=== PATIENT | female | born 1940 | race Caucasian/White ===

== ENCOUNTER 2018-06-03 21:45 | Emergency (ER) | payer MEDICARE ==
[~2018-06-03] VITALS: Ht 165.1 cm; Wt 52.3 kg
[2018-06-03 21:47] VITALS: Ht 165.1 cm; Wt 52.3 kg
[2018-06-03] MEDS ORDERED: LOPERAMIDE HCL2 MG PO (21:48)
[2018-06-03] MEDS ORDERED: FEXOFENADINE HC60 MG PO (21:48)
[2018-06-03] MEDS ORDERED: NASACORT10.8 ML NASAL (21:48)
[2018-06-03 22:08] LABS: BASOPHILS 0.5 % (0-2); EOSINOPHILS 1.6 % (0-7); HEMOGLOBIN 13.4 g/dL (12-16); IMMATURE GRANULOCYTES 0.2 % (0-5); LYMPHOCYTES 17.7 % (15-50); MCH 30.5 pg (26.0-34.0); MCHC 34.4 g/dL (31.0-37.0); MCV 88.6 fL (80.0-100.0); MEAN PLATELET VOLUME 10.2 fL (7.4-10.4); MONOCYTES 9.2 % (2-11); NEUTROPHILS 70.8 % (40-80); PLATELET COUNT 207 10x3/uL (130-400); RDW 12.7 % (11.5-14.5); WBC 4.4 10x3/uL (4.8-10.8)
[2018-06-03 22:19] LABS: INR 0.9 (0.85-1.17); PROTIME 11.8 SECONDS (11.6-15.0)
[2018-06-03 22:23] LABS: ALBUMIN 3.6 g/dL (3.4-5.0); ALKALINE PHOSPHATASE 84 U/L (46-116); ALT (SGPT) 24 U/L (10-68); BILIRUBIN - TOTAL 0.23 mg/dL (0.2-1.3); CALC OSMOLALITY 286 mosm/kg (275-300); CALCIUM 8.7 mg/dL (8.5-10.1); CARBON DIOXIDE 28.3 mmol/L (21.0-32.0); CHLORIDE - SERUM 104 mmol/L (98-107); CREATININE - SERUM 0.9 mg/dL (0.6-1.3); GLUCOSE 125 mg/dL (74-106); POTASSIUM - SERUM 3.7 mmol/L (3.5-5.1); PROTEIN - SERUM 6.8 g/dL (6.4-8.2); SODIUM 142 mmol/L (136-145); UREA NITROGEN 21 mg/dL (7-18); eGFR NON AFRICAN AMERICAN 64 mL/min (90-120)
[2018-06-03 22:34] LABS: CKMB 1.9 U/L (0.0-3.6); CREATINE KINASE 81 UL (21-215)
[2018-06-03 22:42] LABS: TROPONIN-I < 0.017 ng/mL (0.000-0.060)
[2018-06-03 23:12] LABS: APTT 26.7 SECONDS (22.8-39.4)
[2018-06-04 00:10] VITALS: BP 153/70
== END 2018-06-04 00:11 | disposition home or self-care (01) ==
LOC: D.ER 21:45
PROVIDERS: Family Medicine
DX: R68.84 Jaw pain (principal); R06.00 Dyspnea, unspecified; R07.9 Chest pain, unspecified